=== PATIENT | female | born 1955 | race Caucasian/White ===

== ENCOUNTER 2018-07-25 06:36 | Observation (INO) ==
[2018-07-25] MEDS ORDERED: Famotidine PF Inj 20 MG/2 ML Vial IV.PUSH ONE (06:55)
[2018-07-25 07:05] LABS: Baso # (Auto) 0.1 th/mm3 (0.0-0.2); Baso % (Auto) 1.1 % (0.0-2.0); Eos # (Auto) 0.2 th/mm3 (0.0-0.4); Eos % (Auto) 2.8 % (0.0-4.0); Hematocrit 45.2 % (35.0-46.0); Hemoglobin 15.1 gm/dL (11.6-15.3); Lymph % (Auto) 31.4 % (9.0-44.0); Mean Corpuscular HGB Conc 33.3 % (32.0-36.0); Mean Corpuscular Hemoglobin 30.3 pg (27.0-34.0); Mean Corpuscular Volume 90.9 fL (80.0-100.0); Mono # (Auto) 0.5 th/mm3 (0.0-0.9); Mono % (Auto) 7.3 % (0.0-8.0); Neut # (Auto) 3.7 th/mm3 (1.8-7.7); Neut % (Auto) 57.4 % (16.0-70.0); Platelet Count 269 th/mm3 (150-450); Red Blood Count 4.97 mil/mm3 (4.00-5.30); Red Cell Distribution Width 12.8 % (11.6-17.2); White Blood Count 6.5 th/mm3 (4.0-11.0)
[2018-07-25 07:14] LABS: Chloride 101 meq/L (98-107); Potassium 3.7 meq/L (3.5-5.1); Sodium 141 meq/L (136-145)
[2018-07-25 07:18] LABS: Albumin 4.1 g/dL (3.4-5.0); Anion Gap 10 meq/L (5-15); Calcium 9.6 mg/dL (8.5-10.1); Carbon Dioxide 29.9 meq/L (21.0-32.0); Glucose,Random 111 mg/dL (74-106); Lipase 118 U/L (73-393)
[2018-07-25 07:19] LABS: Blood Urea Nitrogen 15 mg/dL (7-18)
[2018-07-25 07:21] LABS: Alanine Aminotransferase 28 U/L (10-53); Aspartate Aminotransferase 23 U/L (15-37)
[2018-07-25 07:22] LABS: Glomerular Filtration Rate 46 mL/min (>89)
[2018-07-25 07:24] LABS: Alkaline Phosphatase 66 U/L (45-117)
[2018-07-25 07:26] LABS: Troponin I 0.08 ng/mL (0.02-0.05)
--- NOTE | 2018-07-25 07:29 | ED ---
HPI General Chief complaint: Chest Pain Stated complaint: Chest Pain Time Seen by Provider: 07/25/18 07:09 History of Present Illness HPI narrative: Ms. Mckinney is a 62-year-old with no significant PMH or PFH who presents to the ED with a CC of substernal, left sided chest pressure and pain that is dull and squeezing in quality and radiates to her left neck and left shoulder. The pain first occurred yesterday morning when climbing the stairs in her home and occurred again this morning after getting up from bed to use the bathroom. She is not currently experiencing pain. She rated the pain this morning 8/10 in severity. She reports some mild indigestion. She denies SOB, numbness, tingling, nausea, vomiting, fever or chills. Related Data Home Medications Medication Instructions Recorded Confirmed No Known Home Medications 07/25/18 07/25/18 Allergies Allergy/AdvReac Type Severity Reaction Status Date / Time No Known Allergies Allergy Unverified 07/25/18 06:52 Review of Systems ROS: all other systems reviewed are negative [facility] Medical History Medical History Patient denies medical problems (Acute) Surgical History Surgical History History of cholecystectomy (Acute) Social History Social History Substance History: No History of Abuse Second Hand Smoke Exposure: No Smoking Status: Former smoker How Often Do You Have a Drink Containing Alcohol: Never Recent Travel in [facility] within the Last 8 Weeks: No Immunization History Tetanus Immunization: >5 Years Hx Influenza Vaccine This Season: No Exam Narrative Exam Narrative: GENERAL: Appears in no acute distress. Speaks logically and without effort. Alert and oriented x 4. SKIN: Warm and dry. HEAD: Atraumatic. Normocephalic. EYES: Pupils equal and round. No scleral icterus. No injection or drainage. ENT: No nasal bleeding or discharge. Mucous membranes pink and moist. NECK: Trachea midline. No JVD. CARDIOVASCULAR: Regular rate and rhythm. Radial pulses equal in rate, rhythm and amplitude bilaterally. RESPIRATORY: No accessory muscle use. Clear to auscultation. Breath sounds equal bilaterally. GASTROINTESTINAL: Abdomen soft, non-tender, nondistended. Hepatic and splenic margins not palpable. MUSCULOSKELETAL: Extremities without clubbing, cyanosis, or edema. No obvious deformities. NEUROLOGICAL: Awake and alert. No obvious cranial nerve deficits. Motor grossly within normal limits. Five out of 5 muscle strength in the arms and legs. Normal speech. PSYCHIATRIC: Appropriate mood and affect; insight and judgment normal. Course Initial Documented Vital Signs Temperature 98.7 F 07/25/18 06:38 Pulse Rate 79 07/25/18 06:38 Respiratory Rate 18 07/25/18 06:38 Blood Pressure 123/70 07/25/18 06:38 Last Documented Vital Signs Temperature 98.7 F 07/25/18 06:38 Pulse Rate 61 07/25/18 07:30 Respiratory Rate 18 07/25/18 07:30 Blood Pressure 146/84 H 07/25/18 07:30 Pulse Oximetry 98 07/25/18 07:30 Medical Decision Making MDM Narrative Medical decision making narrative: EKG shows T wave inversions notable in V1 6, no acute ST elevations, and concerning story, this is concerning for possible underlying cardiac disease. Troponin is mildly elevated at 0.08. Patient had been given aspirin, nitroglycerin, and is currently chest pain-free. Case is discussed with Dr. Barraza who would like the patient to be transferred to the main hospital for admission under hospitalist service, states that the patient may need catheterization. Case has been discussed with Dr. Escobar for admission to medical service. She was initiated on heparin therapy. Medical Screen Exam Complete: Yes Emergency Medical Condition: Yes Differential Diagnosis Differential Diagnosis: ACS versus unstable angina versus pneumonia versus costochondritis versus GERD Lab Data Result diagrams: 07/25/18 06:40 07/25/18 06:40 Lab Results 07/25/18 07/25/18 Range/Units 06:40 06:40 CBC w Diff Auto diff final WBC 6.5 (4.0-11.0) th/mm3 RBC 4.97 (4.00-5.30) mil/mm3 Hgb 15.1 (11.6-15.3) gm/dL Hct 45.2 (35.0-46.0) % MCV 90.9 (80.0-100.0) fL MCH 30.3 (27.0-34.0) pg MCHC 33.3 (32.0-36.0) % RDW 12.8 (11.6-17.2) % Plt Count 269 (150-450) th/mm3 MPV 8.0 (7.0-11.0) fL Neut % (Auto) 57.4 (16.0-70.0) % Lymph % (Auto) 31.4 (9.0-44.0) % Alpine % (Auto) 7.3 (0.0-8.0) % Eos % (Auto) 2.8 (0.0-4.0) % Baso % (Auto) 1.1 (0.0-2.0) % Neut # (Auto) 3.7 (1.8-7.7) th/mm3 Lymph # (Auto) 2.0 (1.0-4.8) th/mm3 Alpine # (Auto) 0.5 (0.0-0.9) th/mm3 Eos # (Auto) 0.2 (0.0-0.4) th/mm3 Baso # (Auto) 0.1 (0.0-0.2) th/mm3 WBC Differential . Differential Comment . Sodium 141 (136-145) meq/L Potassium 3.7 (3.5-5.1) meq/L Chloride 101 (98-107) meq/L Carbon Dioxide 29.9 (21.0-32.0) meq/L Anion Gap 10 (5-15) meq/L BUN 15 (7-18) mg/dL Creatinine 1.20 H (0.50-1.00) mg/dL Estimated GFR 46 L (>89) mL/min Random Glucose 111 H (74-106) mg/dL Calcium 9.6 (8.5-10.1) mg/dL Total Bilirubin 0.9 (0.2-1.0) mg/dL AST 23 (15-37) U/L ALT 28 (10-53) U/L Alkaline Phosphatase 66 (45-117) U/L Troponin I 0.08 H (0.02-0.05) ng/mL Total Protein 8.0 (6.4-8.2) g/dL Albumin 4.1 (3.4-5.0) g/dL Lipase 118 (73-393) U/L ECG Data Attestation: I personally reviewed and interpreted this ECG as follows: Interpretation: EKG shows a normal sinus rhythm at a rate of 70 bpm. She has T wave depressions notable in the lateral leads V1 through V6 with no signs of acute ST elevations. Discharge Plan Discharge Disposition Patient Disposition: 30 Still Patient Discharge Condition Condition: Good Discharge Details Anticipated Discharge Date: 07/25/18 Diagnosis: Unstable angina pectoris Physicians Team ED Provider: Rosaura Houston Primary Care Provider: Primary Care Robini,Babs Rxs /Orders / Referrals /Forms Prescriptions: No Action No Known Home Medications RF: 0 Discharge Instructions Patient Printed Instructions: Chest Pain (ED) Discharge Interventions Interventions: Vital Signs Last Done: 07/25/18 07:30 Status ED Status: With Doctor
[2018-07-25] MEDS ORDERED: Heparin Drip 25,000 UNIT/250 ML BAG IV.CONT PRN (07:45)
[2018-07-25] MEDS ORDERED: Heparin 10,000 UNITS/10 ML Vial (for IV use) IV.PUSH STA (07:45)
[2018-07-25 08:04] LABS: Prothrombin Time 10.1 sec (9.8-11.6)
--- NOTE | 2018-07-25 08:18 | XR ---
EXAM DATE: 07/25/2018 8:04 AM EDT AGE/SEX: 62 years / Female INDICATIONS: Chest pain. CLINICAL DATA: This is the patient's initial encounter. Patient reports that signs and symptoms have been present for 2 days and indicates a pain score of 1/10. MEDICAL/SURGICAL HISTORY: None. Cholecystectomy. COMPARISON: No prior exams available for comparison. FINDINGS: A single AP view of the chest demonstrates the lungs to be symmetrically aerated without evidence of mass, infiltrate or effusion. The cardiomediastinal contours are unremarkable. Heart normal in size. Osseous structures are intact. CONCLUSION: No acute cardiopulmonary disease Electronically signed by: Roosevelt Ferreira MD 07/25/2018 8:17 AM EDT
--- NOTE | 2018-07-25 08:26 | P.HP ---
History of Present Illness Service: Hospitalist Primary Care Physician: No Primary Care Physician Chief Complaint: Chest pain History of Present Illness: Ms. Mckinney is a pleasant 62-year-old female with no significant medical history who presents to the emergency department due to chest pain that started on 07/24/2018. In the morning on 07/24/2018, patient was going upstairs when she noted a squeezing quality chest pain with radiation to her left arm and left side of her neck. She did not have any nausea vomiting or diaphoresis. Her symptoms subsided only to recur several times during the day. This morning she had similar symptoms several times at rest as well which prompted her to seek medical attention. Patient denies any shortness of breath , fever or chills. No abdominal pain. No changes in bowel or bladder habits. Patient does take aspirin on a daily basis. Past medical history: No significant past medical history. Past surgical history: Cholecystectomy, and foot surgery Social history: Patient quit smoking on February 19, 2018. She denies using illicit drugs or alcohol. Family history: Patient's father had heart disease in his 70s. Mother has dementia. - Diagnosis (1) NSTEMI (non-ST elevated myocardial infarction) Review of Systems All other systems reviewed negative except as stated in [facility] - History History Provided By: Patient - Medical History Medical History: Medical History (Last Reviewed 07/25/18 @ 07:27 by Rosaura Houston MD) Patient denies medical problems - Surgical History Surgical History: Surgical History (Last Reviewed 07/25/18 @ 07:27 by Rosaura Houston MD) History of cholecystectomy - Tobacco History Second Hand Smoke Exposure: No Tobacco Use In Past 30 Days: No Smoking Status: Former smoker - Alcohol History How Often Do You Have a Drink Containing Alcohol: Never - Substance Use History Substance History: No History of Abuse - Travel History Recent Travel in the [facility] Within the Last 8 Weeks: No - Immunization History Tetanus Immunization: >5 Years Hx Influenza Vaccine This Season: No Medications and Allergies Active Medications: Active Medications Acetaminophen (Tylenol) 650 mg PO Q4H PRN PRN Reason: Headache, fever, pain 1-5 Al Hydroxide/Mg Hydroxide (Milk Of Magnesia Liq) 30 ml PO Q12H PRN PRN Reason: Mild Constipation Atorvastatin Calcium (Lipitor) 80 mg PO ONCE ONE Stop: 07/25/18 09:01 Bisacodyl (Dulcolax Supp) 10 mg RECTAL DAILY PRN PRN Reason: SEVERE CONSITIPATION Heparin Sodium/Dextrose (Heparin/D5w 25,000 U/250 Ml) 25,000 unit in 250 mls @ 0 mls/hr IV.CONT TITRATE PRN; Protocol PRN Reason: Per Protocol Last Admin: 07/25/18 08:07 Dose: 700 units/hr, 7 mls/hr Lactulose (Lactulose Liq) 30 ml PO DAILY PRN PRN Reason: SEVERE CONSITIPATION Metoprolol Tartrate (Lopressor) 25 mg PO BID KEVIN Ondansetron HCl (Zofran Inj) 4 mg IV.PUSH Q6H PRN PRN Reason: NAUSEA OR VOMITING Sennosides (Senokot) 17.2 mg PO Q12H PRN PRN Reason: Moderate Constipation Allergies Allergy/AdvReac Type Severity Reaction Status Date / Time No Known Allergies Allergy Unverified 07/25/18 06:52 Home Medications Medication Instructions Recorded Confirmed Type No Known Home Medications 07/25/18 07/25/18 History Exam Vital signs: Vital Signs 07/25/18 06:38 07/25/18 06:52 07/25/18 07:30 Temperature 98.7 F Pulse Rate 79 70 61 Respiratory Rate 18 18 18 Blood Pressure 123/70 149/87 H 146/84 H Pulse Oximetry 100 98 Intake & Output 07/24/18 07/25/18 07/25/18 18:59 06:59 18:59 Weight 58.513 kg Narrative: GENERAL: This is a well-nourished, well-developed patient, in no apparent distress. SKIN: No rashes, ecchymoses or lesions. Warm and dry. HEAD: Atraumatic. Normocephalic. No temporal or scalp tenderness. EYES: Pupils equal round and reactive. No injection or drainage. ENT: Nose without bleeding, purulent drainage or septal hematoma. Airway patent. NECK: Trachea midline. No lymphadenopathy. Supple, nontender, no meningeal signs. CARDIOVASCULAR: Regular rate and rhythm without murmurs, gallops, or rubs. No JVD. RESPIRATORY: Clear to auscultation. Breath sounds equal bilaterally. No wheezes , rales, or rhonchi. GASTROINTESTINAL: Abdomen soft, non-tender, nondistended. No guarding. MUSCULOSKELETAL: Extremities without clubbing, cyanosis, or edema. NEUROLOGICAL: Awake and alert. Cranial nerves II through XII intact. No focal neurological deficits. Normal speech. Results - Labs CBC & Chem 7: 07/25/18 06:40 07/25/18 06:40 Labs: Laboratory Results - last 24 hr 07/25/18 07/25/18 07/25/18 06:40 06:40 06:40 CBC w Diff Auto diff final WBC 6.5 RBC 4.97 Hgb 15.1 Hct 45.2 MCV 90.9 MCH 30.3 MCHC 33.3 RDW 12.8 Plt Count 269 MPV 8.0 Neut % (Auto) 57.4 Lymph % (Auto) 31.4 Gregory % (Auto) 7.3 Eos % (Auto) 2.8 Baso % (Auto) 1.1 Neut # (Auto) 3.7 Lymph # (Auto) 2.0 Gregory # (Auto) 0.5 Eos # (Auto) 0.2 Baso # (Auto) 0.1 WBC Differential . Differential Comment . PT 10.1 INR 1.0 APTT 25.0 Sodium 141 Potassium 3.7 Chloride 101 Carbon Dioxide 29.9 Anion Gap 10 BUN 15 Creatinine 1.20 H Estimated GFR 46 L Random Glucose 111 H Calcium 9.6 Total Bilirubin 0.9 AST 23 ALT 28 Alkaline Phosphatase 66 Troponin I 0.08 H Total Protein 8.0 Albumin 4.1 Lipase 118 - Imaging Chest X-Ray 07/25/18 07:11 CONCLUSION: No acute cardiopulmonary disease Caprini VTE Risk Assessment Caprini VTE Risk Assessment: Moderate/High Risk (score >= 2) Caprini Risk Assessment Model: Point Value = 1 Point Value = 2 Point Value = 3 Point Value = 5 Age 41-60 Minor surgery BMI > 25 kg/m2 Swollen legs Varicose veins or History of unexplained or recurrent spontaneous Oral contraceptives or hormone replacement Sepsis (< 1 month) Serious lung disease, including pneumonia (< 1 month) Abnormal pulmonary function Acute myocardial infarction Congestive heart failure (< 1 month) History of inflammatory bowel disease Medical patient at bed rest Age 61-74 Arthroscopic surgery Major open surgery (> 45 min) Laparoscopic surgery (> 45 min) Malignancy Confined to bed (> 72 hours) Immobilizing plaster cast Central venous access Age >= 75 History of VTE Family history of VTE Factor V Leiden Prothrombin [id number] Lupus anticoagulant Anticardiolipin antibodies Elevated serum homocysteine Heparin-induced thrombocytopenia Other congenital or acquired thrombophilia Stroke (< 1 month) Elective arthroplasty Hip, pelvis, or leg fracture Acute spinal cord injury (< 1 month) Prophylaxis Regimen: Total Risk Factor Score Risk Level Prophylaxis Regimen 0-1 Low Early ambulation 2 Moderate Order ONE of the following: *Sequential Compression Device (SCD) *Heparin 5000 units SQ BID 3-4 Higher Order ONE of the following medications: *Heparin 5000 units SQ TID *Enoxaparin/Lovenox 40 mg SQ daily (WT < 150 kg, CrCl > 30 mL/min) *Enoxaparin/Lovenox 30 mg SQ daily (WT < 150 kg, CrCl > 10-29 mL/min) *Enoxaparin/Lovenox 30 mg SQ BID (WT < 150 kg, CrCl > 30 mL/min) AND/OR *Sequential Compression Device (SCD) 5 or more Highest Order ONE of the following medications: *Heparin 5000 units SQ TID (Preferred with Epidurals) *Enoxaparin/Lovenox 40 mg SQ daily (WT < 150 kg, CrCl > 30 mL/min) *Enoxaparin/Lovenox 30 mg SQ daily (WT < 150 kg, CrCl > 10-29 mL/min) *Enoxaparin/Lovenox 30 mg SQ BID (WT < 150 kg, CrCl > 30 mL/min) AND *Sequential Compression Device (SCD) Assessment and Plan - Assessment (1) NSTEMI (non-ST elevated myocardial infarction) Code(s): I21.4 - Non-ST elevation (NSTEMI) myocardial infarction Status: Acute - Plan Ms. Mckinney is a pleasant 62-year-old female with no significant past medical history who presents to the emergency department due to typical chest pain that started yesterday morning. She describes her pain as a squeezing in quality and she also reports radiation to her left arm and left neck. Her chest discomfort happened both on minor exertion as well as at rest. First troponin was 0.08. Non-STEMI -Typical chest pain, troponin 0.08, EKG shows ST changes in V1-V4. -Patient was given aspirin 324 mg once. -Nitroglycerin and metoprolol tartrate 25 mg twice daily -We will give first dose of Lipitor 80 mg now. Will obtain lipid profile in the morning. -Cardiology consulted, possible cardiac catheter today. SEVERINO score is 4. -Patient is currently on heparin drip. History of tobacco abuse -Patient quit smoking on February 19, 2018. She does not drink or use any illicit drugs. Mild PATIENCE - Creatinine 1.20. Baseline unknown. Avoid nephrotoxics as much as possible. - BMP in the AM Full code. Heparin Drip.
[2018-07-25] MEDS ORDERED: Acetaminophen 325 MG Tablet PO PRN (09:00)
[2018-07-25] MEDS ORDERED: Bisacodyl 10 MG Supp RECTAL PRN (09:00)
--- NOTE | 2018-07-25 09:29 | ECG ---
Date Performed: 07/25/2018 Time Performed: 06:46:38 PTAGE: 62 years EKG: Sinus rhythm LEFT ATRIAL ENLARGEMENT T-WAVE ABNORMALITY, CONSIDER ANTEROLATERAL ISCHEMIA ABNORMAL ECG NO PREVIOUS TRACING DOCTOR: Jaguar Henriquez Interpretating Date/Time 07/25/2018 09:28:46
[2018-07-25] MEDS ORDERED: Sod Chloride 0.9% Inj 1,000 ML IV.CONT SCH (10:30)
[2018-07-25] MEDS ORDERED: Heparin/NS PF Inj 1,000 ML ONE (10:56)
[2018-07-25] MEDS ORDERED: fentaNYL Citrate Inj 100 MCG/2 ML Ampul ONE (10:56)
[2018-07-25] MEDS ORDERED: Heparin 10,000 UNITS/10 ML Vial (for IV use) ONE (10:56)
[2018-07-25] MEDS ORDERED: Heparin/NS PF Inj 500 ML ONE (11:07)
[2018-07-25] MEDS ORDERED: Labetalol HCl Inj 100 MG/20 ML Vial ONE (12:05)
[2018-07-25] MEDS ORDERED: Nitroglycerin SL 400 MCG/ACT 4.9 GM Spray Bottle SL ONE (12:16)
[2018-07-25] MEDS ORDERED: hydrALAZINE HCl Inj 20 MG/ML Vial ONE (12:18)
[2018-07-25] MEDS ORDERED: Misc Info for Pharmacy OTHER STA (12:23)
--- NOTE | 2018-07-25 12:33 | CATHPROC ---
[employer] HIS Report Study Information Study Number Admission Scheduled Start Study Start [id number] Jul 25 2018 7:53AM 07/25/2018 Jul 25 2018 10:50AM [place] [facility] Cardiac Catheterization Admit Source Facility Department Other [facility] - Fuel Cell Systems Engineer Physician and Clinical Staff Initial Barry Harper Survey Party ChiefLencho Bolivar RN Survey Party ChiefBhavani Wilkerson RN Scrub Adamy, Jennifer, RN Procedures Performed Procedure Location (Site) Vessel Name Coronary Angiograms LCA Left Coronary Coronary Angiograms RCA Right Coronary Drug Eluting Inflatio LAD Mid Left Coronary PTCA DIAG Prox Left Coronary PTCA LAD Mid Left Coronary PTCA ADD ON'S Wire insertion Radial (right) Radial Art. Equipment Time Reamer Hand Description Size Mfg Part Number Used/Scraped COPILOT VALVE, BLEEDBACK [id number] 11:34 [employer] Used CONTROL *[id number] TRANSDUCER, TRUWAVE [id number] 11:37 B[employer]AN[employer] SHAH * Used W/STOCKCOCK *[id number] *[id number] *[id number] 11:37 [employer] BLANKET,WARM AIR CCL * Used *[id number] 11:37 [employer] PACK, CCL CUSTOM * Used *[id number] 11:37 [employer] SUPPORT, ARTERIAL ADULT [id number] *[id number] Used [id number] 12:09 [employer] BALLOON, 2.0 X 10MM EUPHORA 10MM Used *[id number] 11:56 [employer] BALLOON, 2.5 X 20MM EUPHORA 20MM Used *[id number] 11:17 [employer] JR 5.0 DXTERITY CATHETER FR 5 [id number] Used [id number] 11:59 [employer] STENT, 2.0 12MM LACI 2.0 X 12MM Used *[id number] 12:12 [employer] STENT, 2.25 22MM LACI 2.25 22MM [id number] Used [id number] 11:35 [employer] 30 MIREYA INDEFLATOR Used *[id number] BAND, RADIAL COMPRESSION TR [id number] 12:19 [employer] 24CM Used SHORT 24 *[id number] SHEATH, FR6 RADIAL PRELUDE 11:37 [employer] FR 6 [id number] Used EASE 11CM [id number] 10:59 [employer] WIRE, EXCHANGE 260CM 3MMJ 260CM Used *[id number] 10:59 [employer]OLD, 4 PORT * Used *[id number] 10:59 [employer] OMNIPAQUE, 350 MG, 150ML 150ML [id number] Used WIRE, RUNTHROUGH NS FLOPPY 1 11:36 [employer] 180CM Used .014 180CM *[id number] WIRE, RUNTHROUGH NS FLOPPY 11:47 [employer] 180CM Used .014 180CM *[id number] Equipment Model, Serial, Lot Number and Expiration Data Description Model Number Serial Number Lot Number Expiration Date BALLOON, 2.0 X 10MM EUPHORA [id number] 12-15-2019 JR 5.0 DXTERITY CATHETER [id number] 07-12-2020 STENT, 2.0 12MM LAIC [id number] 01-26-2020 STENT, 2.25 22MM LACI [id number] 02-11-2020 History: Allergies Allergy Reaction No Known Allergies History: Risk Factors Family History of Hypertension Dyslipidemia Previous ID Previous Heart Failure Premature CAD No No Yes No No Prior Valve Prior PCI Prior CABG Surgery No No No Cerebrovascular Peripheral Artery Chronic Lung On Dialysis Diabetes Disease Disease Disease No No No No No History: Risk Factors Selection Items Current Smoker Labs Hgb (g/dl) Hct (%) WBC (l/cumm) Platelets (thousands) 11.60-17.00 35.00-51.00 4.00-11.00 150.00-450.00 15.1 45.2 6.5 269 Glucose (mg/dl) BUN (mg/dl) Creatinine (mg/dl) BUN:Creatinine (1:x) 74.00-106.00 7.00-18.00 0.50-1.30 10.00-20.00 111 15 1.2 12.5 Na (meq/l) K (meq/l) 136.00-145.00 3.50-5.10 141 3.7 INR (PTT:PT) 0.90-1.10 1 Medication Medication Total Dose (Bolus/Oral) Medication Total Dosage/Unit 1% XYLOCAINE 5 mL ANGIOMAX BOLUS 9 mL EFFIENT 60 mg FENTANYL 75 mcg HEPARIN 2000 units HYDRALAZINE 10 mg LABETOLOL 20 mg NITROGLYCERIN S/L 0.8 mg NTG (IC) 300 mcg VERSED 3 mg Medications (Bolus/Oral) Medication Time Given Dosage/Unit Administered By Reason VERSED 07/25/2018 11:21:09 AM 1 mg Alina, Lencho 1 mg VERSED given in lab by Lencho Fuller RN in Left Antecubital via Peripheral IV. Ordered by Barry Barraza. FENTANYL 07/25/2018 11:22:26 AM 25 mcg Alina, Lencho 25 mcg FENTANYL given in lab by Lencho Fuller RN in Left Antecubital via Peripheral IV. Ordered by Barry Brantley. 1% XYLOCAINE 07/25/2018 11:24:36 AM 5 mL Barry Barraza 5 mL 1% XYLOCAINE given in lab by Barry Barraza in Right Radial via Subcutaneous. Ordered by Barry Barraza. NTG (IC) 07/25/2018 11:25:55 AM 200 mcg Barry Barraza 200 mcg NTG (IC) given in lab by Barry Barraza in Right Radial via Intra-arterial. Ordered by Barry Barraza. HEPARIN 07/25/2018 11:26:17 AM 2000 units Lencho Fuller 2000 units HEPARIN given in lab by Lencho Fuller RN in Left Antecubital via Peripheral IV. Ordered by Barry Barraza. ANGIOMAX BOLUS 07/25/2018 11:36:52 AM 9 mL Lencho Fuller 9 mL ANGIOMAX BOLUS given in lab by Lencho Fuller RN in Left Antecubital via Peripheral IV. Ordered b y Barry Barraza. NTG (IC) 07/25/2018 11:37:57 AM 100 mcg Brary Barraza 100 mcg NTG (IC) given in lab by Barry Barraza in Right Radial via Intra-arterial. Ordered by Barry Barraza. VERSED 07/25/2018 11:38:42 AM 1 mg Alina, Lencho 1 mg VERSED given in lab by Lencho Fuller RN in Left Antecubital via Peripheral IV. Ordered by Barry Barraza. FENTANYL 07/25/2018 11:39:00 AM 25 mcg Alina, Lencho 25 mcg FENTANYL given in lab by Lencho Fuller RN in Left Antecubital via Peripheral IV. Ordered by Barry Brantley. FENTANYL 07/25/2018 11:58:47 AM 25 mcg Alina, Lencho 25 mcg FENTANYL given in lab by Lencho Fuller RN in Left Antecubital via Peripheral IV. Ordered by Barry Brantley. VERSED 07/25/2018 12:02:50 PM 1 mg Alina, Lencho 1 mg VERSED given in lab by Lencho Fuller RN in Left Antecubital via Peripheral IV. Ordered by Barry Barraza. LABETOLOL 07/25/2018 12:10:39 PM 20 mg Bhavani George 20 mg LABETOLOL given in lab by Bhavani George RN in Right Antecubital via Peripheral IV. Ordered b Barry Dos Santos. NITROGLYCERIN S/L 07/25/2018 12:17:12 PM 0.4 mg Alina, Lencho 0.4 mg NITROGLYCERIN S/L given in lab by Lencho Fuller RN via Sublingual. Ordered by Barry Barraza. HYDRALAZINE 07/25/2018 12:20:20 PM 10 mg Alina, Lencho 10 mg HYDRALAZINE given in lab by Lencho Fuller RN in Left Antecubital via Peripheral IV. Ordered by Barry Barraza. NITROGLYCERIN S/L 07/25/2018 12:28:24 PM 0.4 mg Alina, Lencho 0.4 mg NITROGLYCERIN S/L given in lab by Lencho Fuller RN via Sublingual. Ordered by Barry Barraza. EFFIENT 07/25/2018 12:30:20 PM 60 mg Alina, Lencho 60 mg EFFIENT given in lab by Lencho Fuller RN via Oral. Ordered by Barry Barraza. Medication (Drip) Medication Time Given Dosage/Unit Concentration/Unit Diluent (ml) Solution ANGIOMAX DRIP 07/25/2018 11:39:49 AM 1.75 mg/kg/hr 250 mg 50 NaCl .9 1.75 mg/kg/hr ANGIOMAX DRIP given in lab by Lencho Fuller RN in Left Antecubital via Peripheral IV. P ump/Drip Flow = 20.48 ml/hr using NaCl .9 with a concentration of 250 mg in 50 ml. Ordered by Barry Barraza. IV Solutions 07/25/2018 11:03:27 AM 50 mL (IV) 500 NaCl .9 IV Solutions given in lab by Alina, Lencho, RN in Left Antecubital via Peripheral IV. Pump/Drip Flow u sing NaCl .9. Ordered by Barry Barraza. Initial Case Assessment Cardiovascular HR NIBP 58 140/78 Edema Present Skin color Skin None Normal Warm Dry Circulatory - Right Pulses Dorsalis Pedis Femoral 3 3 Scale (0,1,2,3,4,d) Circulatory - Left Pulses Dorsalis Pedis Femoral 3 3 Scale (0,1,2,3,4,d) Neurological State Oriented to time-place- Alert Moves all extremities person Respiration - General Respiration Rate SpO2 (%) (B/min) 100 12 Final Case Assessment Cardiovascular HR NIBP 58 136/106 Edema Present Skin color Skin None Normal Warm Dry Circulatory - Right Pulses Dorsalis Pedis Femoral 3 3 Scale (0,1,2,3,4,d) Circulatory - Left Pulses Dorsalis Pedis Femoral 3 3 Scale (0,1,2,3,4,d) Neurological State Oriented to time-place- Alert Moves all extremities person Respiration - General Respiration Rate SpO2 (%) (B/min) 99 17 Chronological Log Time Study Chronological Log 10:53:36 Patient arrived via Bed. 10:53:37 Patient Name, D.O.B, / Armband Verified By R.N. 10:53:37 Consent signed by the physician and the patient and verified by the Fuel Cell Systems Engineer staff. 10:53:38 Pre-op and post- op instructions given; patient acknowledges understanding of instructions. Vitals capture started with the following parameters, Patient=Adult, Interval=5 min, Initial Pr sjisnx=011 mmHg, 10:59:01 Deflation Rate=5 mmHg, Cuff placed on Left Arm 10:59:05 Reference ECG taken 10:59:16 Presedation assessment performed by Fuel Cell Systems Engineer RN. 10:59:29 Allens test performed on the right radial and ulnar artery. 10:59:39 Patient has been NPO for More than 6Hrs. 10:59:40 Skin Breakdown- none per pt. 10:59:41 HR=58 bpm, WOJM=575/78 mmhg, TtM7=916.0 %, Resp=12 B/min, Pain=0, Florinda=10, Wall=2 10:59:59 A # 20 IV was noted in the Antecubital (left). Grade = 0 IV Solutions given in lab by Alina, Lencho, RN in Left Antecubital via Peripheral IV. Pump/Drip Flow using NaCl .9. 11:03:27 Ordered by Barry Barraza. 11:04:04 History and physical on the chart or being dictated. Assessment: Initial Case, HR=58 BPM, YHJN=593/78 mmhg, Edema=None, Color=Normal, Skin = Warm, D ry Right Pulses: Rojas Ped=3, Femoral=3 11:04:05 Left Pulses: Rojas Ped=3, Femoral=3 Neurological: State=Alert, Ox3, VYAS Respiration: Ebsz=364 B/min, SpO2=12 % 11:04:36 HR=61 bpm, UAEJ=177/77 mmhg, SpO2=98.0 %, Resp=17 B/min, Pain=0, Florinda=10, Wall=2 11:05:02 Bilateral groins prepped with 2% chlorhexidine, and draped after a 3 minute waiting time. 11:09:37 HR=61 bpm, BONW=600/72 mmhg, SpO2=97.0 %, Resp=10 B/min, Pain=0, Florinda=10, Wall=2 11:14:36 HR=60 bpm, NYIT=541/76 mmhg, SpO2=98.0 %, Resp=14 B/min, Pain=0, Florinda=10, Wall=2 11:15:21 Pressure channel 2 zeroed. 11:15:47 Pressure channel 2 zeroed. 11:19:41 HR=60 bpm, XQJX=873/68 mmhg, SpO2=99.0 %, Resp=14 B/min, Pain=0, Florinda=10, Wall=2 Time Out. Correct patient, correct procedure, correct physician, labs, allergies, and equipment verified with label machine operator 11:19:45 team present. Fire risk assesment completed (see hard stop sheet for coding). Time Out Conc urred by MD and individual staff in procedure. 11:21:09 1 mg VERSED given in lab by Lencho Fuller RN in Left Antecubital via Peripheral IV. Ordered by Barry Barraza. 11:22:26 25 mcg FENTANYL given in lab by Lencho Fuller RN in Left Antecubital via Peripheral IV. Ord ered by Barry Barraza. 11:24:36 5 mL 1% XYLOCAINE given in lab by Barry Barraza in Right Radial via Subcutaneous. Ordered by Barry Barraza. 11:24:38 HR=60 bpm, KATG=300/65 mmhg, SpO2=98.0 %, Resp=14 B/min, Pain=0, Florinda=10, Wall=2 11:24:53 Case Start 11:25:16 Access site was Right Radial Artery . 11:25:55 200 mcg NTG (IC) given in lab by Barry Barraza in Right Radial via Intra-arterial. Ordered by Barry Barraza. 11:26:17 2000 units HEPARIN given in lab by Lencho Fuller, RN in Left Antecubital via Peripheral IV. Ordered by Barry Barraza. A JR 5.0 DXTERITY CATHETER FR 5 was advanced over a wire. OMNIPAQUE, 350 MG, 150ML 150ML was us ed for 11:27:07 injections. Recorded Pressure: LV, HR=63, Condition=Condition 1 11:27:59 (Left Ventricle) LV 116/1/5 Recorded Pressure: LV, Ao, HR=64, Condition=Condition 1 11:28:06 (Left Ventricle) LV 115/1/4, (Aorta) Ao 114/63/84 Recorded Pressure: Ao, HR=67, Condition=Condition 1 11:28:45 (Aorta) Ao 105/60/79 11:29:05 The RCA was injected and visualized at various angles. OMNIPAQUE, 350 MG, 150ML 150ML used . 11:29:37 HR=70 bpm, NQTJ=390/56 mmhg, SpO2=95 %, Resp=14 B/min, Pain=0, Florinda=10, Wall=2 After removing the current catheter a JL 3.5 INFINITI CATHETER FR 5 was advanced over a WIRE, E XCHANGE 260CM 11:29:52 3MMJ 260CM. 11:32:58 The LCA was injected and visualized at various angles. OMNIPAQUE, 350 MG, 150ML 150ML used . 11:34:34 HR=65 bpm, HVJR=206/59 mmhg, SpO2=95.0 %, Resp=12 B/min, Pain=0, Florinda=10, Wall=2 11:35:14 OMNIPAQUE, 350 MG, 150ML 150ML and 30 MIREYA INDEFLATOR added. 9 mL ANGIOMAX BOLUS given in lab by Lencho Fuller RN in Left Antecubital via Peripheral IV. Ord ered by Madi 11:36:52 Barry. 11:37:57 100 mcg NTG (IC) given in lab by Barry Barraza in Right Radial via Intra-arterial. Ordered by Barry Barraza. 11:38:42 1 mg VERSED given in lab by Lencho Fuller RN in Left Antecubital via Peripheral IV. Ordered by Barry Barraza. After removing the current catheter a AL 1 GUIDE CATHETER FR 6 was advanced over a WIRE, EXCHAN GE 260CM 11:38:56 3MMJ 260CM. 11:39:00 25 mcg FENTANYL given in lab by Lencho Fuller RN in Left Antecubital via Peripheral IV. Ord ered by Barry Barraza. 11:39:37 HR=61 bpm, MHJI=965/62 mmhg, SpO2=95.0 %, Resp=11 B/min, Pain=0, Florinda=10, Wall=2 1.75 mg/kg/hr ANGIOMAX DRIP given in lab by Lencho Fuller RN in Left Antecubital via Peripheral IV. Pump/Drip Flow 11:39:49 = 20.48 ml/hr using NaCl .9 with a concentration of 250 mg in 50 ml. Ordered by Barry Barraza. 11:42:05 A WIRE, RUNTHROUGH NS FLOPPY .014 180CM 180CM was inserted via Radial (right). 11:44:42 HR=63 bpm, BUOG=753/54 mmhg, SpO2=93.0 %, Resp=11 B/min 11:46:02 Interventional wire has crossed the lesion 11:48:27 A WIRE, RUNTHROUGH NS FLOPPY .014 180CM 180CM was inserted via Radial (right). 11:49:41 HR=64 bpm, KOHC=114/74 mmhg, SpO2=93.0 %, Resp=12 B/min, Pain=0, Florinda=10, Wall=2 A BALLOON, 2.5 X 20MM EUPHORA 20MM was inserted over WIRE, RUNTHROUGH NS FLOPPY .014 180CM 180C M via 11:55:04 the LAD Mid. 11:55:17 HR=58 bpm, OGQR=107/77 mmhg, SpO2=97.0 %, Resp=9 B/min, Pain=0, Florinda=10, Wall=2 A BALLOON, 2.5 X 20MM EUPHORA 20MM over a WIRE, RUNTHROUGH NS FLOPPY .014 180CM 180CM in the LA D Mid 11:55:38 was inflated using a 30 MIREYA INDEFLATOR at 6 mireya for 20 sec. A BALLOON, 2.5 X 20MM EUPHORA 20MM over a WIRE, RUNTHROUGH NS FLOPPY .014 180CM 180CM in the LA D Mid 11:56:12 was inflated using a 30 MIREYA INDEFLATOR at 6 mireya for 18 sec. 11:57:45 Balloon Removed. 11:58:47 25 mcg FENTANYL given in lab by Lencho Fuller RN in Left Antecubital via Peripheral IV. Ord ered by Barry Barraza. A STENT, 2.0 12MM LACI 2.0 X 12MM was advanced through a AL 1 GUIDE CATHETER FR 6 over a WIRE, 11:58:54 RUNTHROUGH NS FLOPPY .014 180CM 180CM. 12:00:27 HR=59 bpm, MDXP=581/91 mmhg, SpO2=95.0 %, Resp=11 B/min, Pain=0, Florinda=10, Wall=2 12:02:50 1 mg VERSED given in lab by Lencho Fuller RN in Left Antecubital via Peripheral IV. Ordered by Barry Barraza. 12:04:40 Stent not deployed. Stent removed and intact. 12:04:51 HR=67 bpm, CUWI=395/92 mmhg, SpO2=94.0 %, Resp=10 B/min, Pain=0, Florinda=10, Wall=2 A BALLOON, 2.0 X 10MM EUPHORA 10MM was inserted over WIRE, RUNTHROUGH NS FLOPPY .014 180CM 180C M via 12:06:56 the LAD Mid. A BALLOON, 2.0 X 10MM EUPHORA 10MM over a WIRE, RUNTHROUGH NS FLOPPY .014 180CM 180CM in the DI AG 12:08:22 Prox was inflated using a 30 MIREYA INDEFLATOR at 6 mireya for 20 sec. A BALLOON, 2.0 X 10MM EUPHORA 10MM over a WIRE, RUNTHROUGH NS FLOPPY .014 180CM 180CM in the DI AG 12:08:50 Prox was inflated using a 30 MIREYA INDEFLATOR at 6 mireya for 20 sec. 12:09:52 HR=61 bpm, SXNO=167/97 mmhg, SpO2=96.0 %, Resp=13 B/min, Pain=0, Florinda=10, Wall=2 12:09:56 Balloon Removed. 20 mg LABETOLOL given in lab by Bhavani George, RAJEEV in Right Antecubital via Peripheral IV. Ord ered by Madi 12:10:39 Barry. A STENT, 2.25 22MM LACI 2.25 22MM was advanced through a AL 1 GUIDE CATHETER FR 6 over a WIRE, 12:12:52 RUNTHROUGH NS FLOPPY .014 180CM 180CM. A STENT, 2.25 22MM LACI 2.25 22MM was deployed using a 30 MIREYA INDEFLATOR at 16 atmospheres for 14 seconds 12:12:53 in the LAD Mid. 12:14:53 HR=66 bpm, VINB=015/87 mmhg, SpO2=95.0 %, Resp=13 B/min, Pain=0, Florinda=10, Wall=2 12:15:11 Delivery device removed 12:15:57 Wires removed 12:16:39 A WIRE, EXCHANGE 260CM 3MMJ 260CM was inserted via Radial (right). 12:16:51 Catheter was removed 12:17:12 0.4 mg NITROGLYCERIN S/L given in lab by Lencho Fuller RN via Sublingual. Ordered by Barry Barraza. 12:17:42 Case End (Physician broke scrub) PCI QA completed: Pre-Luke - 3, Post Luke - 3, Type - ~TYPE~, Length - 20 mm, Morphology - ~MOR PHOLOGY~, 12:17:44 Indications - ~INDICATIONS~, Pre-Stenosis - 3% and Post Stenosis - 3%. 12:17:46 PCI QA obtained from [employer] 12:18:34 Catheter(s) removed without difficulty Radial Compression Device Used. 10 mLs of air placed in BAND, RADIAL COMPRESSION TR SHORT 24 24 CM. Affected 12:18:37 hand 98 % O2 saturation. 12:19:11 No case complications noted. 12:19:21 Cine recording checked. 12:19:23 Bedside Report will be given. 12:19:26 Implantable Device card placed in patient's chart. 12:19:54 HR=62 bpm, LJET=869/80 mmhg, SpO2=97.0 %, Resp=18 B/min, Pain=0, Florinda=10, Wall=2 12:20:20 10 mg HYDRALAZINE given in lab by Lencho Fuller RN in Left Antecubital via Peripheral IV. Ordered by Barry Barraza. 12:24:47 HR=82 bpm, MIYQ=581/106 mmhg, SpO2=98.0 %, Resp=17 B/min, Pain=6, Florinda=10, Wall=2 Assessment: Final Case, HR=58 BPM, FUAT=522/106 mmhg, Edema=None, Color=Normal, Skin = Warm, D ry Right Pulses: Rojas Ped=3, Femoral=3 12:27:57 Left Pulses: Rojas Ped=3, Femoral=3 Neurological: State=Alert, Ox3, VYAS Respiration: Resp=99 B/min, SpO2=17 % 12:28:12 Vitals capture stopped. 12:28:24 0.4 mg NITROGLYCERIN S/L given in lab by Lencho Fuller, RN via Sublingual. Ordered by Barry Barraza. 12:30:20 60 mg EFFIENT given in lab by Lencho Fuller RN via Oral. Ordered by Barry Barraza. 12:32:27 Patient moved to [facility] End Study - Contrast Media Used In Study Contrast Total Opened (mL) Total Used (mL) Total Wasted (mL) Omnipaque 100 100 0 End Study - Maximum Contrast Load Max Contrast Load (mL) 243.8 End Study - Radiation Exposure Fluoro Time (minutes) 17.4 End Study - Patient Disposition Complications Transferred To Telemetry Bed
--- NOTE | 2018-07-25 12:54 | MB ---
cc: Barry Barraza MD DATE: 07/25/2018 INDICATION: Chest pain. HISTORY OF PRESENT ILLNESS: This is a 62-year-old female without significant past medical history, on no medications, who is otherwise routinely active, who just recently, over the course of the last week or so, has developed exertional symptoms. Her initial symptoms began when she carried her grandbaby up a flight of stairs and developed chest pain, and she started having more symptoms with exertion. Finally, she had symptoms at rest, early this morning around 5 in the morning while in bed and also while helping her demented mother clean herself up, enough to concern her and brought her to the emergency department. Electrocardiogram showed T-wave inversions anteriorly. Troponin was in the intermediate range. Given the suggestive symptoms, we transferred her over for cardiac catheterization with elevated troponins. PAST MEDICAL HISTORY: None. PAST SURGICAL HISTORY: Cholecystectomy. SOCIAL HISTORY: Smoked for 8 years, but quit in 02/2018. No alcohol use. No drug use. FAMILY HISTORY: There is no family history of sudden cardiac . REVIEW OF SYSTEMS: A 12-point review of systems performed, negative unless otherwise noted in history of present illness. PHYSICAL EXAMINATION: VITAL SIGNS: Temperature is normal, pulse is 78, blood pressure 149/87 mmHg. GENERAL: Alert, oriented x3, in no acute distress. HEENT: Shows pupils reactive to light and accommodation. Extraocular movements intact. NECK: No elevation of jugular venous distention. No thyromegaly, lymphadenopathy. No carotid bruits. LUNGS: Clear to auscultation bilaterally. CARDIOVASCULAR: Regular rate and rhythm without murmurs, rubs or gallops. ABDOMEN: Nontender, nondistended with good bowel sounds. No hepatosplenomegaly. EXTREMITIES: Show no cyanosis or edema. Good peripheral pulses. NEUROLOGIC: Cranial nerves intact. Motor and sensory grossly intact. LABORATORY DATA: WBC 6.5, hemoglobin 15.1, platelet count is 269. INR is 1. Chemistries: Sodium 141, potassium 3.7, BUN 15, creatinine is 1.20. Troponin 0.08. Electrocardiogram: Sinus rhythm with T-wave inversions to the anterior precordial leads. ASSESSMENT: Non-ST elevation myocardial infarction. PLAN: Will proceed with cardiac catheterization given symptoms and EKG changes along with elevated troponin. We discussed with the patient. The patient understood and consented to the proceed. The patient will undergo echocardiogram. MD CHRISTOPHER Pina/jose , 12:35 PM , 12:42 PM
[2018-07-25] MEDS ORDERED: oxyCODONE/Acetaminophen 10/325 Tablet PO PRN (13:00)
[2018-07-25] MEDS ORDERED: Temazepam 15 MG Capsule PO PRN (13:00)
[2018-07-25] MEDS ORDERED: Morphine Inj 4 MG/ML Vial IV.PUSH PRN (13:00)
[2018-07-25] MEDS ORDERED: Sodium Chlor 0.9% Inj 250 ML IV.SIG ONE (13:00)
--- NOTE | 2018-07-25 13:01 | MA ---
cc: Barry Barraza MD DATE: 07/25/2018 DATE OF PROCEDURE: 07/25/2018 INDICATION: Non-ST elevation myocardial infarction. PROCEDURES PERFORMED: 1. Fluoroscopy with interpretation. 2. Coronary angiography. 3. Left heart catheterization. 4. Percutaneous transluminal coronary angioplasty of the second diagonal branch. 5. Percutaneous endovascular drug-eluting stent to the mid left anterior descending coronary artery. METHOD: Risks, benefits, and alternatives were discussed with the patient. The patient understood and consented to the procedure. The patient was brought to the catheterization lab and placed on the catheterization table. The right wrist was prepped and draped in sterile fashion. The right wrist was anesthetized with 2% lidocaine. The right radial artery was cannulated and a 6-Haitian slender sheath was placed without difficulty. LEFT HEART CATHETERIZATION: Intraventricular hemodynamics measured 115/1 mmHg with a left ventricular end-diastolic pressure of 4 mmHg. Transaortic valvular pullback gradient revealed no stenosis. CORONARY ANGIOGRAPHY: 1. Left main coronary has mild luminal irregularities. 2. Left anterior descending coronary proximal has mild luminal irregularities. First diagonal branch is small caliber size, 95%, subtotally occluded. Second diagonal branch is small to moderate caliber size, there is a 50% ostial stenosis. The mid left anterior descending coronary has a 95% subtotal occlusion. Remainder of the vessel has mild luminal irregularities. 3. Circumflex has 40% stenosis in the proximal segment. Obtuse marginal branch has 40% stenosis. The remainder of the obtuse marginal branch has mild luminal irregularities. 4. Right coronary artery is a dominant vessel giving rise to posterior descending coronary artery. Right coronary has mild luminal irregularities in the mid segment. PERCUTANEOUS INTERVENTION: A 6-Haitian AL1 guide catheter was advanced to ascending aorta and engaged in left main coronary artery. A 0.0141 at 180 cm Terumo Runthrough wire was navigated down the distal left anterior descending coronary artery. Second Terumo wire was navigated down to the second diagonal branch. A 2.5 x 20 mm Medtronic balloon was advanced to the mid left anterior descending coronary, deployed in 2 sequential inflations. A 2.0 x 10 mm RX Medtronic balloon was advanced down the second diagonal branch and deployed and then wire removed. A 2.25 x 22 mm RX Resolute Hernando stent was deployed to the mid left anterior descending coronary and deployed. Repeat angiography showed no residual stenosis. The first diagonal branch was a small caliber size, was lost due to plaque shifting. Second one is widely patent with SEVERINO 3 flow. The wire was removed, guide catheter removed and a HemoBand applied. CONCLUSIONS: 1. Severe mid left anterior descending coronary stenosis or bifurcation stenosis. 2. Successful percutaneous endovascular stenting a drug-eluting stent to the mid left anterior descending coronary artery and balloon angioplasty of second diagonal branch. PLAN: The patient will be monitored closely for a post-procedural complications. Hopefully this will provide the patient with symptomatic improvement. The patient will be initiated on aspirin, Effient, and statin therapy in addition to beta blockade. We will obtain a 2D echocardiogram. The patient does have some minor chest pain symptoms, likely related to the first diagonal branch occlusion. MD CHRISTOPHER Pina/ , 12:31 PM , 12:40 PM
[2018-07-25] MEDS: Acetaminophen 325 MG Tablet PO PRN ×2 (14:12→18:20)
[2018-07-25] MEDS: Metoprolol Tartrate 25 MG Tablet PO SCH ×2 (14:44→21:14)
[2018-07-25] MEDS: Isosorbide Mononitrate 30 MG ER 24HR Tablet (Imdur) PO SCH (14:49)
--- NOTE | 2018-07-25 17:51 | ECHRPT ---
Indication: chest pain CONCLUSIONS The left ventricular systolic function is hyperdynamic with an estimated ejection fraction in the ra nge of 65- 70%. Normal left ventricular size. Wall thickness is normal. No regional wall motion abnormalities are present. BP: / HR: Rhythm: Sinus MEASUREMENTS (Male / Female) Normal Values Technical Quality:Fair 2D ECHO LV Diastolic Diameter PLAX 3.5 cm 4.2 - 5.9 / 3.9 - 5.3 cm LV Systolic Diameter PLAX 2.3 cm IVS Diastolic Thickness 1.1 cm 0.6 - 1.0 / 0.6 - 0.9 cm LVPW Diastolic Thickness 1.1 cm 0.6 - 1.0 / 0.6 - 0.9 cm LV Relative Wall Thickness 0.6 RV Internal Dim ED PLAX 2.0 cm LVOT Diameter 1.9 cm LA Systolic Diameter LX 2.5 cm 3.0 - 4.0 / 2.7 - 3.8 cm M-MODE Aortic Root Diameter MM 1.9 cm LA Systolic Diameter MM 2.6 cm LA Ao Ratio MM 1.4 AV Cusp Separation MM 1.5 cm DOPPLER AV Peak Velocity 174.0 cm/s AV Peak Gradient 12.1 mmHg LVOT Peak Velocity 110.0 cm/s LVOT Peak Gradient 4.8 mmHg AV Area Cont Eq pk 1.8 cm MV Area PHT 3.9 cm Mitral E Point Velocity 74.5 cm/s Mitral A Point Velocity 80.0 cm/s Mitral E to A Ratio 0.9 LV E' Lateral Velocity 7.7 cm/s Mitral E to LV E' Lateral Ratio 9.7 LV E' Septal Velocity 6.1 cm/s Mitral E to LV E' Septal Ratio 12.1 PV Peak Velocity 110.0 cm/s PV Peak Gradient 4.8 mmHg FINDINGS LEFT VENTRICLE The left ventricular systolic function is hyperdynamic with an estimated ejection fraction in the ra nge of 65- 70%. Normal left ventricular size. Wall thickness is normal. No regional wall motion abnormalities are present. RIGHT VENTRICLE Normal right ventricular size and systolic function. LEFT ATRIUM The left atrial size is normal. RIGHT ATRIUM The right atrial size is normal. ATRIAL SEPTUM Normal atrial septal thickness without atrial level shunting by limited color doppler interrogation. AORTA The aortic root and proximal ascending aorta are normal in size on limited imaging. MITRAL VALVE Structurally normal mitral valve. No mitral valve stenosis or regurgitation. AORTIC VALVE Trileaflet aortic valve. No aortic valve stenosis or regurgitation. TRICUSPID VALVE Structurally normal tricuspid valve. No tricuspid valve stenosis or regurgitation. PULMONARY VALVE The pulmonary valve is not well visualized. VESSELS The inferior vena cava is normal in size. PERICARDIUM No pericardial effusion. Barry Barraza MD, FACC (Electronically Signed) Final Date:25 July 2018 17:50
[2018-07-25] MEDS ORDERED: Iohexol 350 MG/ML 100 ML Vial (for Cath Lab) IVCONTRAST ONE (18:11)
[2018-07-26] MEDS: Sod Chloride 0.9% Inj 1,000 ML IV.CONT SCH ×4 (00:36→09:31)
[2018-07-26 06:14] LABS: Hematocrit 36.3 % (35.0-46.0); Hemoglobin 12.3 gm/dL (11.6-15.3); Mean Corpuscular Hemoglobin 30.8 pg (27.0-34.0); Mean Corpuscular Volume 90.8 fL (80.0-100.0); Mean Platelet Volume 8.1 fL (7.0-11.0); Platelet Count 225 th/mm3 (150-450); Red Cell Distribution Width 13.4 % (11.6-17.2); White Blood Count 7.2 th/mm3 (4.0-11.0)
[2018-07-26 06:41] LABS: Carbon Dioxide 26.3 meq/L (21.0-32.0); Potassium 3.6 meq/L (3.5-5.1)
[2018-07-26 06:59] LABS: HDL Cholesterol 57.2 mg/dL (40.0-60.0)
--- NOTE | 2018-07-26 07:42 | P.PNCA ---
Subjective Interval history: No issues overnight. Patient denies any chest pain, shortness breath, palpitations. No issues with right wrist access site. Physical Exam Vital signs: Vital Signs 07/25/18 07:54 07/25/18 08:18 07/25/18 17:08 Temperature Pulse Rate 64 66 Respiratory Rate 18 18 Blood Pressure 158/93 H 109/57 L Pulse Oximetry 98 99 97 07/25/18 18:08 07/25/18 19:00 07/25/18 20:00 Temperature 98.2 F Pulse Rate 63 62 66 Respiratory Rate 18 16 Blood Pressure 127/75 120/68 Pulse Oximetry 99 98 07/25/18 21:00 07/25/18 22:00 07/25/18 23:00 Temperature 98.2 F Pulse Rate 60 58 L 60 Respiratory Rate 16 Blood Pressure 110/56 L Pulse Oximetry 98 07/26/18 00:00 07/26/18 01:00 07/26/18 02:00 Temperature Pulse Rate 50 L 54 L 56 L Respiratory Rate Blood Pressure Pulse Oximetry 07/26/18 03:00 07/26/18 04:00 07/26/18 05:00 Temperature 98.7 F Pulse Rate 56 L 57 L 58 L Respiratory Rate 16 Blood Pressure 111/70 Pulse Oximetry 98 07/26/18 06:00 Temperature Pulse Rate 57 L Respiratory Rate Blood Pressure Pulse Oximetry Intake & Output 07/25/18 07/26/18 07/26/18 18:59 06:59 18:59 Intake Total 660 / 660 480 / 480 Output Total 1200 / 1200 Balance 660 / 660 -720 / -720 Weight 130 lb 1.164 oz Intake: IV 20 / 20 Heparin/NS PF Inj 500 ML @ 0 20 / 20 mls/hr .ROUTE .[facility] Rx#: [id number] Oral 240 / 240 480 / 480 Anesthesia Amount 400 / 400 Output: Urine 1200 / 1200 Other: # Voids 1 # Bowel Movements 0 Narrative: GENERAL: Well-developed well-nourished. In no acute distress. NECK: No carotid bruits. No JVD. CARDIOVASCULAR: Regular rate and rhythm. No murmur appreciated. RESPIRATORY: No accessory muscle use. Clear to auscultation. Breath sounds equal bilaterally. MUSCULOSKELETAL: No clubbing or cyanosis. No edema. Right wrist access site with no swelling, ecchymosis, tenderness and pulses are intact. NEUROLOGICAL: Awake and alert. Normal speech. Assessment and Plan - Plan 62-year-old female with no significant past medical history who presented for exertional chest pain and found to have elevated troponin and T-wave changes. NSTEMI/CAD: s/p LHC with PCI/SAGE to LAD stenosis and balloon angioplasty of second diagonal branch. Continue aspirin, Effient, beta-sarika, statin, Imdur. DC planning. Discussed Condition With: Patient with RN at bedside, hospitalist, Dr. Barraza
[2018-07-26] MEDS: Isosorbide Mononitrate 30 MG ER 24HR Tablet (Imdur) PO SCH (08:02)
[2018-07-26] MEDS: Metoprolol Tartrate 25 MG Tablet PO SCH (08:02)
[2018-07-26 10:00] VITALS: BP 122/67; RESP 18; TEMP 98; O2SAT 97
[2018-07-26 10:43] VITALS: PULSE 58
--- NOTE | 2018-07-26 11:22 | P.PN ---
Subjective Interval history: feels great no complains of chest discomfort or shortness of breath Physical Exam Vital signs: Vital Signs 07/25/18 17:08 07/25/18 18:08 07/25/18 19:00 Temperature Pulse Rate 66 63 62 Respiratory Rate 18 18 Blood Pressure 109/57 L 127/75 Pulse Oximetry 97 99 07/25/18 20:00 07/25/18 21:00 07/25/18 22:00 Temperature 98.2 F Pulse Rate 66 60 58 L Respiratory Rate 16 Blood Pressure 120/68 Pulse Oximetry 98 07/25/18 23:00 07/26/18 00:00 07/26/18 01:00 Temperature 98.2 F Pulse Rate 60 50 L 54 L Respiratory Rate 16 Blood Pressure 110/56 L Pulse Oximetry 98 07/26/18 02:00 07/26/18 03:00 07/26/18 04:00 Temperature 98.7 F Pulse Rate 56 L 56 L 57 L Respiratory Rate 16 Blood Pressure 111/70 Pulse Oximetry 98 07/26/18 05:00 07/26/18 06:00 07/26/18 07:00 Temperature Pulse Rate 58 L 57 L 57 L Respiratory Rate Blood Pressure Pulse Oximetry 07/26/18 08:00 07/26/18 09:00 07/26/18 10:00 Temperature 98.0 F Pulse Rate 64 60 58 L Respiratory Rate 18 Blood Pressure 122/67 Pulse Oximetry 97 Intake & Output 07/25/18 07/26/18 07/26/18 18:59 06:59 18:59 Intake Total 660 / 660 480 / 480 1000 / 1000 Output Total 1200 / 1200 Balance 660 / 660 -720 / -720 1000 / 1000 Weight 59 kg Intake: IV 20 / 20 1000 / 1000 Heparin/NS PF Inj 500 ML @ 0 20 / 20 mls/hr .ROUTE .[facility] Rx#: [id number] NS Inj 1,000 ML @ 125 mls/hr IV 1000 / 1000 .CONT .[facility] Rx#:[id number] Oral 240 / 240 480 / 480 Anesthesia Amount 400 / 400 Output: Urine 1200 / 1200 Other: # Voids 1 Date of Last Bowel Movement 07/24/18 # Bowel Movements 0 Narrative: awake and alert, no acute distress anciteric no bruit lungs- clear regular rhythm abdomen soft, nontender right wrist- cath site- no hematoma LE - no edema neuro exam- unremarkable Results - Labs CBC & Chem 7: 07/26/18 05:06 07/26/18 05:06 Laboratory Results - last 24 hr 07/26/18 07/26/18 05:06 05:06 WBC 7.2 RBC 4.00 Hgb 12.3 D Hct 36.3 MCV 90.8 MCH 30.8 MCHC 34.0 RDW 13.4 Plt Count 225 MPV 8.1 Sodium 143 Potassium 3.6 Chloride 109 H D Carbon Dioxide 26.3 Anion Gap 8 BUN 17 Creatinine 1.28 H Estimated GFR 42 L Random Glucose 83 Calcium 8.0 L D Total Creatine Kinase 58 Triglycerides 63 Cholesterol 172 LDL Cholesterol, Calc 102 H HDL Cholesterol 57.2 Cholesterol/HDL Ratio 3.00 - Procedures cardiac cath- 07/25 Assessment and Plan - Assessment (1) NSTEMI (non-ST elevated myocardial infarction) Code(s): I21.4 - Non-ST elevation (NSTEMI) myocardial infarction Status: Acute - Plan Ms. Mckinney is a pleasant 62-year-old female with no significant past medical history who presents to the emergency department due to typical chest pain that started yesterday morning. She describes her pain as a squeezing in quality and she also reports radiation to her left arm and left neck. Her chest discomfort happened both on minor exertion as well as at rest. First troponin was 0.08. Non-STEMI S/P cath-- PCI/SAGE to LCx ASA/BB/statons.Effiant/nitrates History of tobacco abuse- counselled -Patient quit smoking on February 19, 2018. She does not drink or use any illicit drugs. Mild PATIENCE- creatinine stable advised adequate hydration - Creatinine 1.20. Baseline unknown. Avoid nephrotoxics as much as possible. DC today OP ff up with a PCP- Dr. simmons OP ff up with cardiology- Dr. Barraza
[2018-07-26] MEDS: Acetaminophen 325 MG Tablet PO PRN (12:05)
--- NOTE | 2018-07-26 13:13 | ECG ---
Date Performed: 07/25/2018 Time Performed: 18:28:52 PTAGE: 62 years EKG: Sinus rhythm Extensive T wave changes may be due to myocardial ischemia Abnormal ECG NO PREVIOUS TRACING DOCTOR: Barry Barraza Interpretating Date/Time 07/26/2018 13:08:48
== END 2018-07-26 12:31 | disposition home or self-care (01) ==
LOC: PHED 06:36 → PHEDA 07:53 → INTOOBSV 07:53 → PHEDA 09:45 → HDIC 13:30 → HCIS 16:26
PROVIDERS: ADMIT Internal Medicine; ATTEND Internal Medicine